=== PATIENT | male | born 2005 | race Caucasian/White ===

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

== ENCOUNTER → 2024-01-01 12:02 | Outpatient (CLI) | payer OTHER, SELFPAY ==
--- NOTE | 2024-01-01 12:04 | DI.MRI.S_ITS ---
PROCEDURE: MR PELIS WO/W CON INDICATIONS: RIGHT HIP PAIN TECHNIQUE: Noncontrast axial and oblique coronal T1 spin echo and STIR through the sacroiliac joints. COMPARISON: None. FINDINGS: Image quality: Excellent. Bones: There is mild marrow edema involving right sacrum adjacent to inferior aspect of right sacroiliac joint and show contrast enhancement. Mild joint space narrowing and subchondral sclerosis in right sacroiliac joint is also noted. Left sacroiliac joint is intact. No bony ankylosis. No suspicious marrow space occupying lesions. Soft tissues: No presacral masses. Rectum appears normal in caliber and wall thickness. No pathologic free pelvic fluid. IMPRESSION: 1. 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 No ankylosis. Normal appearing left sacroiliac joint. 2. No enhancing soft tissue mass or fluid collection. No other area of abnormal intraosseous enhancement. Dictated by: Cheikh Carter M.D. on 01/01/2024 at 22:53 Approved by: Cheikh Carter M.D. on 01/01/2024 at 22:55
--- NOTE | 2024-01-01 12:04 | DI.MRI.S_ITS ---
PROCEDURE: MR HIP RT WO/W CON INDICATIONS: RIGHT HIP PAIN TECHNIQUE: Noncontrast coronal T1 spin echo and STIR through the bony pelvis. Coronal and axial T2 fast spin echo with fat saturation, axial T1 spin echo with fat saturation, sagittal T1 spin echo, and oblique axial T2 fast spin echo with fat saturation through the hip. Post-contrast axial, coronal, and sagittal spin echo with fat saturation through the hip. COMPARISON: None. FINDINGS: Image quality: Excellent. Bones and joints: No suspicious osseous enhancement. Bone marrow of the pelvic ring and proximal femurs show normal signal throughout. No intraosseous lesions or fractures. No avascular necrosis of the femoral heads. The visualized lower lumbar spine appears normally aligned. Tendons and ligaments: Low-grade partial-thickness tear involving distal right gluteus medius tendon at its insertion on greater trochanter is seen. Distal right gluteus minimus tendinosis is seen. The nearby proximal iliotibial band also appears intact. The iliopsoas tendon appears intact, without adjacent bursal fluid collections or evidence for impingement syndrome. The origin of the hamstring tendon is intact at the ischial tuberosity, as well as the associated sacrotuberous ligament. Labrum and cartilage: There is subtle fraying of superior anterior labrum at 12 to 1 o'clock position concerning for subtle superior anterior labral tear. Cartilage surface of the femoral head appears of normal thickness. The alpha angle of the femur is within normal limits at less than 55 degrees. Soft tissues: No suspicious soft tissue enhancement. Visualized muscles demonstrate normal bulk and internal signal. Quadratus femoris muscle demonstrates no internal edema to suggest ischiofemoral impingement. The proximal sciatic neurovascular bundle appears normal adjacent to the hamstring tendons. No free pelvic fluid. Bladder wall thickness is normal. Genitourinary structures and bowel loops appear normal where visualized. IMPRESSION: 1. No marrow edema. No abnormal intraosseous enhancement. No fracture or dislocation. No evidence of avascular necrosis of femoral head. 2. Low-grade partial-thickness tear involving distal right gluteus medius tendon at its insertion on greater trochanter. Distal right gluteus minimus tendinosis. No other muscle or tendon signal abnormalities. No enhancing mass or drainable fluid collection. 3. Finding is concerning for subtle superior anterior right hip labral tear at 12 to 1 o'clock position. Dictated by: Cheikh Carter M.D. on 01/01/2024 at 22:50 Approved by: Cheikh Carter M.D. on 01/01/2024 at 22:52
== END ==
LOC: MRI 12:03
PROVIDERS: PCP Family Medicine; Referring Provider Pediatrics Pediatric Rheumatology; Visit Provider Pediatrics Pediatric Rheumatology
DX: S76.011A Strain of muscle, fascia and tendon of right hip, initial encounter (principal); M25.551 Pain in right hip; M54.9 Dorsalgia, unspecified; G89.29 Other chronic pain
CPT/HCPCS: 72197; 73723; A9579